=== PATIENT | female | born 1985 | race Caucasian/White ===

== ENCOUNTER 2017-05-29 03:14 | Emergency (ER) | payer MEDICAID ==
[~2017-05-29] VITALS: Ht 157.5 cm; Wt 63.5 kg
[2017-05-29 03:20] VITALS: BP_SYST 129
--- NOTE | 2017-05-29 03:20 | NUR ---
Placed in room 07 . Placed on pulse oximeter. To gown for exam. Side rails up. Report given to IKE Arriaga.
--- NOTE | 2017-05-29 03:25 | NUR ---
Patient to ER stating that 2 days ago she scraped the sole of her right foot on a nail. Superficial abrasion, non-bleeding, no signs of infection. AAOx4, unlabored breathing, no signs of acute distress.
--- NOTE | 2017-05-29 03:29 | NUR ---
ER MD Segovia at bedside for evaluation
[2017-05-29] MEDS ORDERED: DIPH-TET-PERTUS Vaccine 0.5 ML VIAL (ADACEL) I.M. ONE (03:45)
--- NOTE | 2017-05-29 03:45 | NUR ---
Radiology at bedside for Xrays
[2017-05-29 03:50] VITALS: BP_SYST 111
--- NOTE | 2017-05-29 03:50 | NUR ---
Patient given written and verbal discharge instructions and verbalizes understanding. ER MD Segovia discussed with patient the results and treatment provided. Patient in stable condition. ID arm band removed. Rx of augmntin given. Patient educated on pain management and to follow up with PMD. Pain Scale 0/10. Opportunity for questions provided and answered.
== END 2017-05-29 03:50 | disposition home or self-care (01) ==
LOC: SED 03:14
DX: S91.331A Puncture wound without foreign body, right foot, initial encounter (principal); L03.115 Cellulitis of right lower limb
CPT/HCPCS: 90715; 99284

== ENCOUNTER 2017-10-11 18:19 | Emergency (ER) | payer MEDICAID ==
[~2017-10-11] VITALS: Ht 157.5 cm; Wt 63.5 kg
[2017-10-11 18:27] VITALS: BP_SYST 149
--- NOTE | 2017-10-11 18:30 | NUR ---
Pt placed in bed 5, report endorsed to My RN
--- NOTE | 2017-10-11 18:35 | NUR ---
32year old female presented to ED with complaints of dizziness and lightheadedness since this morning; denies N/V/D; does report alcoholic consumption last nite; urine sample collected and sent to lab; will continue to monitor
--- NOTE | 2017-10-11 18:35 | NUR ---
ER at bedside examining patient.
[2017-10-11 18:45] LABS: BILIRUBIN,URINE NEGATIVE (NEGATIVE); BLOOD, URINE NEGATIVE (NEGATIVE); CLARITY/URINE CLEAR (CLEAR); COLOR,URINE YELLOW (YELLOW); GLUCOSE,URINE NEGATIVE (NEGATIVE); KETONES,URINE NEGATIVE (NEGATIVE); LEUKOCYTE ESTERASE ,URINE NEGATIVE (NEGATIVE); NITRITE, URINE NEGATIVE (NEGATIVE); PROTEIN URINE NEGATIVE (NEGATIVE); UROBILINOGEN,URINE 0.2 (0.2-1.0)
[2017-10-11] MEDS ORDERED: FOLIC ACID 1 MG, THIAMINE HCL 100 MG, MAGNESIUM SULFATE 1 GM, MVI 10 ML in NACL 0.9% 1,... IV ONE (18:45)
[2017-10-11] MEDS ORDERED: MECLIZINE HCL 25 MG TABLET (ANITVERT) PO ONE (18:45)
--- NOTE | 2017-10-11 18:58 | NUR ---
EKG performed at bedside; pt elham
[2017-10-11 19:03] LABS: EOSINOPHILS # (AUTO) 0.1 K/uL (0.0-0.4); EOSINOPHILS % (AUTO) 1.9 % (0.0-4.0); HEMATOCRIT 37.5 % (36-48); HEMOGLOBIN 12.5 g/dL (12.0-16.0); LYMPHOCYTES # (AUTO) 1.7 K/uL (1.0-5.5); LYMPHOCYTES % (AUTO) 34.8 % (20.5-51.5); MEAN CORPUSCULAR HEMOGLOBIN 29 pg (27-31); MEAN CORPUSCULAR HGB CONC 34 % (32-36); MEAN CORPUSCULAR VOLUME 86 fL (79.0-98.0); MONOCYTES # (AUTO) 0.6 K/uL (0.0-1.0); MONOCYTES % (AUTO) 11.9 % (1.7-9.3); NEUTROPHILS # (AUTO) 2.6 K/uL (1.8-7.7); NEUTROPHILS % (AUTO) 50.4 % (40.0-70.0); PLATELET COUNT (AUTO) 281 K/uL (130-430); RED BLOOD CELL COUNT(AUTO) 4.34 MIL/uL (4.2-6.2); RED CELL DISTRIBUTION WIDTH 11.9 % (9.0-15.0)
[2017-10-11] MEDS ORDERED: MAGNESIUM SULFATE 1 GM/2 ML VIAL ONE (19:10)
[2017-10-11] MEDS ORDERED: THIAMINE HCL 100 MG/ML VIAL ONE (19:10)
[2017-10-11] MEDS ORDERED: FOLIC ACID 5 MG/ML VIAL IV ONE (19:10)
[2017-10-11] MEDS ORDERED: MVI 10 ML VIAL IV ONE (19:10)
--- NOTE | 2017-10-11 19:20 | NUR ---
Unable to scan patient or medication, due to scanner not working. Manual barcode entered for patient/medication. IV fluids infusing without difficulty-no redness or swelling noted at site. Awaiting dispo. Patient reports no change in dizziness after medication administration. Patient resting quietly in no acute distress.
[2017-10-11 19:42] LABS: BARBITURATE, URINE NEGATIVE (NEG <=200); BENZODIAZEPINE, URINE NEGATIVE (NEG <=150); CANNABINOID, URINE NEGATIVE (NEG <=50); COCAINE, URINE NEGATIVE (NEG <=150); METHAMPHETAMINES SCREEN,URINE NEGATIVE (NEG <=500); OPIATE, URINE NEGATIVE (NEG <=100); PHENCYCLIDINE SCREEN,URINE NEGATIVE (NEG <=25); UR TRICYCLIC ANTIDEPRESSANTS NEGATIVE (NEG <=300); URINE AMPHETAMINE NEGATIVE (NEG <=500); URINE METHADONE NEGATIVE (NEG <=200); URINE OXYCODONE SCREEN NEGATIVE (NEG <=100); URINE PROPOXYPHENE SCREEN NEGATIVE (NEG <=300)
[2017-10-11 19:43] LABS: ANION GAP 6 (5-15); CALCIUM 8.7 mg/dL (8.4-11.0); CHLORIDE 104 mmol/L (98-107); CREATININE 0.81 mg/dL (0.55-1.30); GLUCOSE 99 mg/dL (70-99); POTASSIUM 3.8 mmol/L (3.5-5.1); SODIUM SERUM 137 mmol/L (136-145); UREA NITROGEN, BLOOD 9 mg/dL (8-21)
[2017-10-11 19:46] LABS: ALANINE AMINOTRANSFERASE 20 U/L (12-78); ASPARTATE AMINOTRANSFERASE 17 U/L (10-37); TOTAL BILIRUBIN 0.4 mg/dL (0.0-1.0)
[2017-10-11 19:50] LABS: INR 1.1 (0.8-1.2); PROTHROMBIN TIME 10.9 SECS (9.5-12.5)
[2017-10-11 19:52] LABS: ACETAMINOPHEN < 1 ug/mL (1-30); ALCOHOL, BLOOD < 3 mg/dL (<10); GFR AFRICAN AMERICAN 105 mL/min (>90)
[2017-10-11 21:05] VITALS: BP_SYST 125
--- NOTE | 2017-10-11 21:05 | NUR ---
Patient given written and verbal discharge instructions and verbalizes understanding. ER MD discussed with patient the results and treatment provided. Patient in stable condition. ID arm band removed. IV catheter removed intact and dressing applied, no active bleeding. Rx of Meclizine given. Patient educated on pain management and to follow up with PMD in 2-3days. Pain Scale 0/10; pt and MD agreeable to discharge home. Opportunity for questions provided and answered.
== END 2017-10-11 21:05 | disposition home or self-care (01) ==
LOC: SED 18:19
DX: F10.129 Alcohol abuse with intoxication, unspecified (principal); R42 Dizziness and giddiness; Y90.0 Blood alcohol level of less than 20 mg/100 ml
CPT/HCPCS: 36415; 80053; 80307; 81003; 82550; 84484; 85025; 85610; 85730; 93005; 96365; 99285; G0480; G0481; G0482; J3411; J3475; J3490; J7030; J8597

== ENCOUNTER 2018-03-25 19:54 | Emergency (ER) | payer MEDICAID ==
[~2018-03-25] VITALS: Ht 157.5 cm; Wt 62.1 kg
[2018-03-25 19:59] VITALS: BP_SYST 132
[2018-03-25] MEDS ORDERED: IBUPROFEN 400 MG TABLET PO ONE (20:15)
[2018-03-25 20:25] LABS: BILIRUBIN,URINE NEGATIVE (NEGATIVE); BLOOD, URINE 1+ (NEGATIVE); CLARITY/URINE CLEAR (CLEAR); COLOR,URINE YELLOW (YELLOW); GLUCOSE,URINE NEGATIVE (NEGATIVE); KETONES,URINE NEGATIVE (NEGATIVE); LEUKOCYTE ESTERASE ,URINE NEGATIVE (NEGATIVE); NITRITE, URINE NEGATIVE (NEGATIVE); PH,URINE 5.5 (5.0-8.0); PROTEIN URINE NEGATIVE (NEGATIVE); UROBILINOGEN,URINE 0.2 (0.2-1.0)
[2018-03-25] MEDS ORDERED: IBUPROFEN 400 MG TABLET ONE (20:26)
[2018-03-25 20:31] LABS: BACTERIA,URINE RARE /HPF (None Seen); RBC,URINE 0-3 /HPF (0-3); WBC,URINE 0-3 /HPF (0-3)
[2018-03-25 21:32] VITALS: BP_SYST 132
== END 2018-03-25 21:32 | disposition home or self-care (01) ==
LOC: SED 19:54
DX: G43.909 Migraine, unspecified, not intractable, without status migrainosus (principal)
CPT/HCPCS: 70450-TC; 81000-TC; 81025; 99285

== ENCOUNTER 2018-04-30 22:30 | Emergency (ER) | payer MEDICAID ==
[~2018-04-30] VITALS: Ht 157.5 cm; Wt 60.8 kg
[2018-04-30 22:36] VITALS: BP_SYST 131
[2018-04-30] MEDS ORDERED: MAG HYDROX/AL HYDROX/SIMETH 30 ML, BELLADONNA ALKALOIDS/PHENOBARB 10 ML, LIDOCAINE VISC... PO ONE ×3 (23:00)
[2018-04-30 23:42] VITALS: BP_SYST 125
== END 2018-04-30 23:42 | disposition home or self-care (01) ==
LOC: SED 22:30
DX: K21.9 Gastro-esophageal reflux disease without esophagitis (principal); R03.0 Elevated blood-pressure reading, without diagnosis of hypertension
CPT/HCPCS: 99283; J2001

== ENCOUNTER 2018-07-30 18:57 | Emergency (ER) | payer MEDICAID ==
[~2018-07-30] VITALS: Ht 157.5 cm; Wt 58.1 kg
[2018-07-30 19:03] VITALS: BP_SYST 117
[2018-07-30] MEDS ORDERED: KETOROLAC TROMETHAMINE 30 MG VIAL IM ONE (20:00)
[2018-07-30 20:49] VITALS: BP_SYST 115
== END 2018-07-30 20:49 | disposition home or self-care (01) ==
LOC: SED 18:57
DX: R07.89 Other chest pain (principal); F41.9 Anxiety disorder, unspecified
CPT/HCPCS: 71045; 81025; 93005; 99283; J1885; 99284

== ENCOUNTER 2019-01-03 11:48 | Emergency (ER) | payer MEDICAID ==
[~2019-01-03] VITALS: Ht 157.5 cm; Wt 59.0 kg
[2019-01-03] MEDS ORDERED: NACL 0.9% 1,000 ML IV ONE (11:54)
[2019-01-03 12:07] VITALS: BP_SYST 113
[2019-01-03 12:48] LABS: CALCIUM 8.5 mg/dL (8.4-11.0); CREATININE 0.5 mg/dL (0.55-1.30); POTASSIUM 3.9 mmol/L (3.5-5.1)
[2019-01-03 12:55] LABS: HEMATOCRIT 40.3 % (36-48); HEMOGLOBIN 13.5 g/dL (12.0-16.0); LYMPHOCYTES % (AUTO) 29.1 % (20.5-51.5); MEAN CORPUSCULAR HEMOGLOBIN 29 pg (27-31); MEAN CORPUSCULAR HGB CONC 34 % (32-36); MEAN CORPUSCULAR VOLUME 87 fL (79.0-98.0); MONOCYTES % (AUTO) 9.8 % (1.7-9.3); NEUTROPHILS % (AUTO) 60.1 % (40.0-70.0); PLATELET COUNT (AUTO) 233 K/uL (130-430); RED BLOOD CELL COUNT(AUTO) 4.66 MIL/uL (4.2-6.2); RED CELL DISTRIBUTION WIDTH 12.7 % (9.0-15.0); WHITE BLOOD COUNT (AUTO) 5.2 K/uL (4.8-10.8)
[2019-01-03 12:56] LABS: BASOPHILS % (AUTO) 0.3 % (0.0-2.0); EOSINOPHILS % (AUTO) 0.7 % (0.0-4.0); LYMPHOCYTES # (AUTO) 1.5 K/uL (1.0-5.5); MONOCYTES # (AUTO) 0.5 K/uL (0.0-1.0); NEUTROPHILS # (AUTO) 3.2 K/uL (1.8-7.7)
[2019-01-03 12:56] LABS: BILIRUBIN,URINE NEGATIVE (NEGATIVE); BLOOD, URINE NEGATIVE (NEGATIVE); COLOR,URINE YELLOW (YELLOW); GLUCOSE,URINE NEGATIVE (NEGATIVE); KETONES,URINE NEGATIVE (NEGATIVE); LEUKOCYTE ESTERASE ,URINE NEGATIVE (NEGATIVE); NITRITE, URINE NEGATIVE (NEGATIVE); PH,URINE 8.5 (5.0-8.0); PROTEIN URINE TRACE (NEGATIVE)
[2019-01-03 12:58] LABS: CLARITY/URINE HAZY (CLEAR)
[2019-01-03 13:07] LABS: BACTERIA,URINE MODERATE /HPF (None Seen); MUCUS,URINE 1+ /LPF (None Seen); RBC,URINE 0-3 /HPF (0-3); WBC,URINE 0-3 /HPF (0-3)
[2019-01-03 13:15] LABS: ALBUMIN 3.7 g/dL (3.4-4.8); TOTAL BILIRUBIN 0.4 mg/dL (0.0-1.0)
[2019-01-03 13:38] VITALS: BP_SYST 115
== END 2019-01-03 13:38 | disposition home or self-care (01) ==
LOC: SED 11:48
DX: O26.891 Other specified pregnancy related conditions, first trimester (principal); R10.30 Lower abdominal pain, unspecified; R50.9 Fever, unspecified; Z3A.01 Less than 8 weeks gestation of pregnancy
CPT/HCPCS: 36415; 76801; 76817; 80053; 81000; 84702; 85025; 86710; 86901; 87086; 99284; J7030

== ENCOUNTER 2019-08-31 17:54 | Emergency (ER) | payer MEDICAID ==
[~2019-08-31] VITALS: Ht 157.5 cm; Wt 68.0 kg
[2019-08-31 17:54] VITALS: BP_SYST 152
--- NOTE | 2019-08-31 18:00 | NUR ---
Patient triaged and placed in waiting room. VSS and patient appears in no acute distress at this time. Accompanied by FAMILY, awaiting available bed, and MD notified of need for MSE.
--- NOTE | 2019-08-31 18:46 | NUR ---
BROUGHT BACK TO BED #2 AND TRIAGED. REPORT GIVEN TO SABAS
[2019-08-31] MEDS ORDERED: NACL 0.9% 1,000 ML IV ONE ×2 (19:00→20:51)
[2019-08-31] MEDS ORDERED: ASPIRIN 81 MG TAB.CHEW PO ONE (19:00)
--- NOTE | 2019-08-31 19:10 | NUR ---
Pt BIB family to ED C/O shortness of breath for 5 days. Patient reports she is currently 5 days post , normal healthy delivery. She reports having a tightness sensation, pain mild in severity, in her upper chest and throat. Pain is worse with deep inspirations. Patient reports the symptoms are constant, while at rest, worse with movement. No other complaints and or injuries noted VSS no s/s of acute distress. Resting on gurney rails up
[2019-08-31 19:19] LABS: BASOPHILS % (AUTO) 0.5 % (0.0-2.0); EOSINOPHILS # (AUTO) 0.1 K/uL (0.0-0.4); EOSINOPHILS % (AUTO) 2.7 % (0.0-4.0); HEMATOCRIT 38.1 % (36-48); LYMPHOCYTES # (AUTO) 1.9 K/uL (1.0-5.5); LYMPHOCYTES % (AUTO) 34.5 % (20.5-51.5); MEAN CORPUSCULAR HEMOGLOBIN 31 pg (27-31); MEAN CORPUSCULAR HGB CONC 34 % (32-36); MEAN CORPUSCULAR VOLUME 89 fL (79.0-98.0); MONOCYTES # (AUTO) 0.6 K/uL (0.0-1.0); MONOCYTES % (AUTO) 10.4 % (1.7-9.3); NEUTROPHILS # (AUTO) 2.8 K/uL (1.8-7.7); NEUTROPHILS % (AUTO) 51.9 % (40.0-70.0); PLATELET COUNT (AUTO) 266 K/uL (130-430); RED BLOOD CELL COUNT(AUTO) 4.26 MIL/uL (4.2-6.2); RED CELL DISTRIBUTION WIDTH 13.6 % (9.0-15.0); WHITE BLOOD COUNT (AUTO) 5.5 K/uL (4.8-10.8)
[2019-08-31 19:41] LABS: ANION GAP 4 (5-15); CALCIUM 8.9 mg/dL (8.4-11.0); CHLORIDE 104 mmol/L (98-107); GLUCOSE 81 mg/dL (70-99); POTASSIUM 3.7 mmol/L (3.5-5.1); SODIUM SERUM 135 mmol/L (136-145); UREA NITROGEN, BLOOD 14 mg/dL (8-21)
[2019-08-31 19:43] LABS: GFR AFRICAN AMERICAN 182 mL/min (>90)
[2019-08-31 19:58] LABS: ALANINE AMINOTRANSFERASE 35 U/L (12-78); ALBUMIN 2.9 g/dL (3.4-4.8); ASPARTATE AMINOTRANSFERASE 25 U/L (10-37); TOTAL BILIRUBIN 0.2 mg/dL (0.0-1.0)
--- NOTE | 2019-08-31 21:00 | NUR ---
Dr. Petty bedside to update Pt on importance of getting IV Access / CT contrast study
--- NOTE | 2019-08-31 21:18 | NUR ---
Pt taken to Radiology in stable condition
[2019-08-31] MEDS ORDERED: IOHEXOL 350 mgI/mL, 150 ML INFUS..BTL IV ONE (21:21)
--- NOTE | 2019-08-31 21:25 | NUR ---
Pt back from Radiology, well tolerated
[2019-08-31 22:15] VITALS: BP_SYST 144
--- NOTE | 2019-08-31 22:15 | NUR ---
Patient given written and verbal discharge instructions and verbalizes understanding. ER MD discussed with patient the results and treatment provided. Patient in stable condition. ID arm band removed. IV catheter removed intact and dressing applied, no active bleeding. Patient educated on pain management and to follow up with PMD. Pain Scale 0/10 Opportunity for questions provided and answered.
== END 2019-08-31 22:15 | disposition home or self-care (01) ==
LOC: SED 17:54
DX: O90.89 Other complications of the puerperium, not elsewhere classified (principal); R06.02 Shortness of breath
CPT/HCPCS: 36415; 71045; 71275; 80053; 82803; 84484; 85025; 93005; 99284; J7030; Q9967

== ENCOUNTER 2020-01-03 13:37 | Emergency (ER) | payer MEDICAID ==
[~2020-01-03] VITALS: Ht 157.5 cm; Wt 67.1 kg
[2020-01-03 13:43] VITALS: BP_SYST 111
--- NOTE | 2020-01-03 16:18 | NUR ---
Placed in Hallway Chair 1.
--- NOTE | 2020-01-03 16:36 | NUR ---
ER JOBY Omer examining patient.
[2020-01-03] MEDS ORDERED: ONDANSETRON 4 MG ODT TAB PO ONE (16:45)
--- NOTE | 2020-01-03 16:49 | NUR ---
Pt is here for c/o flu like symptoms: fever, chills, headache, body aches, tiredness, and mid abd pain for 3 days. No acute distress noted, VSS. Pt is given Zofran Dt per provider orders. Pt tolerated well.
[2020-01-03 17:09] LABS: BILIRUBIN,URINE NEGATIVE (NEGATIVE); BLOOD, URINE NEGATIVE (NEGATIVE); CLARITY/URINE CLEAR (CLEAR); GLUCOSE,URINE NEGATIVE (NEGATIVE); KETONES,URINE NEGATIVE (NEGATIVE); LEUKOCYTE ESTERASE ,URINE NEGATIVE (NEGATIVE); NITRITE, URINE NEGATIVE (NEGATIVE); PROTEIN URINE NEGATIVE (NEGATIVE); UROBILINOGEN,URINE 0.2 (0.2-1.0)
[2020-01-03 17:49] LABS: COLOR,URINE STRAW (YELLOW)
[2020-01-03 18:07] VITALS: BP_SYST 130
--- NOTE | 2020-01-03 18:07 | NUR ---
Patient given written and verbal discharge instructions and verbalizes understanding. ER FREN[employer] TEACHER Negra discussed with patient the results and treatment provided. Patient in stable condition. ID arm band removed. Rx of Motrin, Zofran given. Patient educated on pain management and to follow up with PMD. Pain Scale 0. Opportunity for questions provided and answered. Medication side effect fact sheet provided.
== END 2020-01-03 18:07 | disposition home or self-care (01) ==
LOC: SED 13:37
DX: M79.18 Myalgia, other site (principal); R11.0 Nausea
CPT/HCPCS: 81003; 81025; 86710; 99283; Q0162; 36415